=== PATIENT | male | born 1980 | race African-American/Black ===

== ENCOUNTER 2017-11-24 14:40 | Emergency (ER) | payer MEDICAID ==
[~2017-11-24] VITALS: Ht 180.3 cm; Wt 81.6 kg
[~2017-11-24 14:40] MED LIST: AMOXICILLIN500 MG ORAL; IBUPROFEN600 MG ORAL; NKM; NORCO 5-325 TA1 EACH ORAL; NORCO 5-325 TA1 EACH PO; PENICILLIN V P500 MG PO
[2017-11-24 14:50] VITALS: BP 155/99
[2017-11-24] MEDS ORDERED: HYDROcodone/Acetamin 10/325 tab ORAL ONE (15:00)
[2017-11-24] MEDS ORDERED: Methocarbamol 750mg tab ORAL ONE (15:00)
[2017-11-24] MEDS ORDERED: ROBAXIN-750750 MG PO (15:09)
[2017-11-24] MEDS ORDERED: IBUPROFEN600 MG ORAL (15:09)
--- NOTE | 2017-11-24 15:10 | Emergency Room Report ---
History of Present Illness General Chief Complaint: Pain Source: Patient Present Illness HPI 37-year-old male p/w back pain for one week. Pain is localized to the left lower back/buttocks, sharp in nature, radiating down leg. Movement worsens pain. There are no alleviating factors. Patient took pain medications with minimal relief. Patient has experienced this similar pain in the past. Denies trauma. Denies lower extremity weakness/numbness, no bowel/bladder retention or incontinence, saddle anesthesia. Denies fever, chills, abdominal pain, n/v, dysuria/hematuria. No history of IVDA Allergies: Coded Allergies: No Known Allergies (Unverified , 08/10/13) Patient History Past Medical History: see triage record Past Surgical History: none Pertinent Family History: none Reviewed Nursing Documentation: PMH: Agreed, PSxH: Agreed Nursing Documentation-PMH Past Medical History: No Stated History Review of Systems All Other Systems: negative except mentioned in HPI Physical Exam Vital Signs Date Time Temp Pulse Resp B/P (MAP) Pulse Ox O2 Delivery O2 Flow Rate FiO2 11/24/17 14:50 97.9 104 18 155/99 98 Room Air Sp02 EP Interpretation: reviewed, normal General Appearance: normal inspection, well appearing, no apparent distress, alert, GCS 15, non-toxic Head: normocephalic, atraumatic Eyes: bilateral eye normal inspection, bilateral eye PERRL, bilateral eye EOMI ENT: normal ENT inspection, normal pharynx, normal voice, moist mucus membranes Neck: normal inspection, full range of motion, supple Respiratory: normal inspection, lungs clear, normal breath sounds, no respiratory distress, no retraction, no wheezing, speaking full sentences, chest symmetrical Cardiovascular #1: normal inspection, regular rate, rhythm, no edema, normal capillary refill Cardiovascular #2: 2+ radial (R), 2+ radial (L) Gastrointestinal: normal inspection, non tender, soft, non-distended, no guarding Genitourinary: no CVA tenderness Musculoskeletal: other - L lower lumbar paraspinal tenderness. no midline tenderness. FROM Neurologic: alert, oriented x3, physical therapy resident III-XII nml as tested, motor strength/tone normal, normal gait Psychiatric: normal inspection, judgement/insight normal, memory normal Skin: normal inspection, normal color, no rash, warm/dry, well hydrated, normal turgor Medical Decision Making Diagnostic Impression: Primary Impression: Back pain ER Course 37-year-old male presenting with left-sided back pain radiating down to leg DDX: Likely musculoskeletal back pain vs. muscular strain vs. sciatica Lumbar fracture is unlikely given patients age, no midline tenderness, no history of trauma, and that patient is ambulatory. Therefore, at this time no imaging is indicated Serious diagnoses such as cord compression, epidural abscess is unlikely in this patient given the clinical scenario and abscess of neurological symptoms or findings. Patient appears nontoxic. Plan: Pain control, Robaxin ER course: Patient has remained nontoxic appearing and ambulatory in the ED. Pain improved w/ medications Disposition: Patient will be discharged to home with prescription of motrin and robaxin. Patient cautioned of the effects of robaxin including possible impairment of physical or mental abilities. Patient was instructed to refrain from operating machinery or driving. Patient is also cautioned on the GI effects of motrin and to take sparingly. Patient verbalized understanding. Strict precautions discussed with patient on when to emergently return to the ED which includes severe/worsening back pain, leg weakness/numbness, urinary retention/incontinence, fever or chills, which may indicate severe illness. Patient is to follow up with their PMD within 5 days. Patient agrees with plan. Please note that this Emergency Department Report was dictated using [employer] special library technology software, occasionally this can lead to erroneous entry secondary to interpretation by the dictation equipment. Last Vital Signs Date Time Temp Pulse Resp B/P (MAP) Pulse Ox O2 Delivery O2 Flow Rate FiO2 11/24/17 14:50 97.9 104 18 155/99 98 Room Air Disposition: HOME, SELF-CARE Condition: Improved Scripts Ibuprofen* (MOTRIN*) 600 Mg Tablet 600 MG ORAL Q8H Y for For Pain, #30 TAB 0 Refills Prov: Nena Yost M.D. 11/24/17 Methocarbamol* (ROBAXIN-750*) 750 Mg Tablet 750 MG PO QID, #28 TAB 0 Refills Prov: Nena Yost M.D. 11/24/17 Patient Instructions: Back Pain, Adult, [id number] Nena Yost M.D. Nov 24, 2017 15:10
[2017-11-24 15:31] VITALS: BP 165/75
== END 2017-11-24 15:31 | disposition home or self-care (01) ==
LOC: EMR 15:20
DX: M54.5 Low back pain (principal)
CPT/HCPCS: 99284

== ENCOUNTER 2018-01-25 12:02 | Emergency (ER) | payer MEDICAID ==
[~2018-01-25 12:02] MED LIST changes: +ROBAXIN-750750 MG PO
--- NOTE | 2018-01-25 13:07 | Emergency Room Report ---
History of Present Illness General Chief Complaint: To Be Triaged Present Illness Allergies: Coded Allergies: No Known Allergies (Unverified , 08/10/13) Medical Decision Making Disposition: MP AZUL M.D. Jan 25, 2018 13:07
== END 2018-01-25 13:30 | disposition left against medical advice (07) ==
LOC: EMR 13:16
DX: Z53.21 Procedure and treatment not carried out due to patient leaving prior to being seen by health care provider (principal)

== ENCOUNTER 2018-10-29 13:18 | Emergency (ER) | payer MEDICAID ==
[~2018-10-29] VITALS: Ht 180.3 cm; Wt 81.6 kg
[2018-10-29 13:24] VITALS: BP 158/82
[2018-10-29] MEDS ORDERED: Norco 5mg/325mg tab ORAL ONE (13:45)
--- NOTE | 2018-10-29 14:02 | Emergency Room Report ---
History of Present Illness General Chief Complaint: Pain Source: Patient Present Illness HPI 38 YO male presents to the ED c/o 07/22 in severity testicular/groin pain and swelling x 2 days. pt. reports sudden onset. He denies penile d/c, dysuria, hematuria or frequency. Pt. reports unprotected intercourse, but not with any new partners. Denies constipation or diarrhea. Pt. reports pain will radiate up the front of abdomen when lying down. Pt. denies n/v/f/c. Pt. denies hx of similar symptoms in the past. Pt. denies swollen tender lymph nodes or rashes. Allergies: Coded Allergies: No Known Allergies (Unverified , 08/10/13) Patient History Past Medical History: see triage record Past Surgical History: none Pertinent Family History: none Reviewed Nursing Documentation: PMH: Agreed; PSxH: Agreed Nursing Documentation-PMH Past Medical History: No Stated History Review of Systems All Other Systems: negative except mentioned in HPI Physical Exam Vital Signs Date Time Temp Pulse Resp B/P (MAP) Pulse Ox O2 Delivery O2 Flow Rate FiO2 10/29/18 13:24 98.1 97 18 158/82 99 Room Air Sp02 EP Interpretation: reviewed, normal General Appearance: no apparent distress, alert, GCS 15, non-toxic Head: normocephalic, atraumatic Eyes: bilateral eye normal inspection, bilateral eye PERRL ENT: hearing grossly normal, normal voice Neck: full range of motion Respiratory: lungs clear, normal breath sounds, speaking full sentences Cardiovascular #1: regular rate, rhythm Gastrointestinal: normal bowel sounds, soft, no peritonitis, non-distended, no rebound Rectal: deferred Genitourinary: normal inspection, no CVA tenderness, penis normal, other - testicular pain, and firmness, negative phren's sign, bilateral cremasteric reflexes intact. swelling noted. no purulent d/c, no lesions/rashes or LAD Musculoskeletal: back normal, gait/station normal, normal range of motion Neurologic: alert, oriented x3, responsive, motor strength/tone normal, sensory intact, normal gait, speech normal, grossly normal Psychiatric: judgement/insight normal Skin: normal color, no rash, warm/dry, well hydrated Medical Decision Making PA Attestation Dr. Capellan is my supervising Physician whom patient management has been discussed with. Diagnostic Impression: Primary Impression: Hydrocele in adult Additional Impression: Epididymal cyst ER Course 38 YO male presents to the ED c/o 07/22 in severity testicular/groin pain and swelling x 2 days. pt. reports sudden onset. He denies penile d/c, dysuria, hematuria or frequency. Pt. reports unprotected intercourse, but not with any new partners. Denies constipation or diarrhea. Pt. reports pain will radiate up the front of abdomen when lying down. Pt. denies n/v/f/c. Pt. denies hx of similar symptoms in the past. Pt. denies swollen tender lymph nodes or rashes. Ddx considered but are not limited to testicular torsion, epididymitis, orchitis , abscess, hernia Vital signs: are WNL, pt. is afebrile H&PE are most consistent with cremasterics reflex is intact with a negative phren's sign -there is no relief upon elevation ORDERS: - Testicular ultrasound: Hydrocele and Cyst on epididymal head. negative for evidence of testicular torsion or other acute testicular pathology" Per official radiology report- Please see report for specific details. ED INTERVENTIONS: - Speer PO DISCHARGE: At this time pt. is stable for d/c to home. Will provide printed patient care instructions, and any necessary prescriptions. Care plan and follow up instructions have been discussed with the patient prior to discharge. CT/MRI/US Diagnostic Results CT/MRI/US Diagnostic Results : Imaging Test Ordered: Testicular US Impression "Hydrocele and Cyst on epididymal head. negative for evidence of testicular torsion or other acute testicular pathology" Per official radiology report- Please see report for specific details. Last Vital Signs Date Time Temp Pulse Resp B/P (MAP) Pulse Ox O2 Delivery O2 Flow Rate FiO2 10/29/18 13:24 98.1 97 18 158/82 99 Room Air Disposition: HOME, SELF-CARE Condition: Stable Scripts Ibuprofen (Ibuprofen) 800 Mg Tablet 800 MG PO Q6HR, #20 TAB Prov: Flor Raygoza 10/29/18 Departure Forms: Return to Work Return to Work Date: Nov 02, 2018 Work Restrictions: None Other Restrictions: May return Sooner if Symptoms have resolved. Return to Full Activity: Nov 02, 2018 Patient Instructions: Hydrocele, Adult Additional Instructions: Take medications as directed. Follow up with a Primary Care Provider in 3-5 days, even if your symptoms have resolved. --Please review list of primary care clinics, if you do not already have a primary care provider Return sooner to ED if new symptoms occur, or current symptoms become worse. - Please note that this Emergency Department Report was dictated using [employer]by[employer] office assistant technology software, occasionally this can lead to erroneous entry secondary to interpretation by the dictation equipment. Flor Raygoza Oct 29, 2018 14:02
[2018-10-29 14:08] LABS: APPEARANCE,URINE CLEAR; BILIRUBIN, URINE NEGATIVE (NEGATIVE); COLOR,URINE PALE YELLOW; GLUCOSE, URINE (UA) NEGATIVE (NEGATIVE); KETONES,URINE NEGATIVE (NEGATIVE); LEUKOCYTE ESTERASE ,URINE 1+ (NEGATIVE); NITRITE,URINE NEGATIVE (NEGATIVE); PH,URINE 7 (4.5-8.0); PROTEIN,URINE NEGATIVE (NEGATIVE); UROBILINOGEN,URINE NORMAL MG/DL (0.0-1.0)
--- NOTE | 2018-10-29 15:18 | Diagnostic Imaging Report ---
Indications: Testicular pain and swelling Technique: Grayscale and duplex images of the scrotum Comparison: none Findings:The right testicle measures 4.6cm in length. It demonstrates normal echogenicity. Normal Doppler flow. There is a 8 mm cyst in the epididymal head. There is a small hydrocele The left testicle measures 4.1 cm in length. It demonstrates normal echogenicity and normal Doppler flow. Normal epididymis. There is a small hydrocele Impression: Negative for evidence of testicular torsion or other acute testicular pathology. Small bilateral hydroceles Cyst in the right epididymal head, either epididymal cyst or spermatocele
[2018-10-29] MEDS ORDERED: IBUPROFEN800 M1 PO (15:36)
[2018-10-29 15:42] VITALS: BP 148/76
== END 2018-10-29 15:42 | disposition home or self-care (01) ==
LOC: EMR 14:45
DX: N43.3 Hydrocele, unspecified (principal); N50.3 Cyst of epididymis
CPT/HCPCS: 76870; 81003; 99284

== ENCOUNTER 2020-08-23 11:16 | Emergency (ER) | payer MEDICAID ==
[~2020-08-23] VITALS: Ht 180.3 cm; Wt 81.6 kg
[~2020-08-23 11:16] MED LIST changes: +IBUPROFEN600 M1 ORAL; +IBUPROFEN800 M1 PO; +NORCO 5-325 TA1 EAC1 ORAL; +VALIUM5 MG ORAL
--- NOTE | 2020-08-23 11:18 | NUR ---
pt. not in the room
[2020-08-23 11:40] VITALS: BP 147/94
--- NOTE | 2020-08-23 11:57 | NUR ---
ED Nurse Note: Patient walked in to ER c/o abdominal pain nausea vomiting and blood in stool for 2 days, needs BP meds refill. Patient presented calm, AAO x4, VSS at this time.
[2020-08-23] MEDS ORDERED: Acetaminophen 500mg (ES) tab ORAL ONE (12:15)
[2020-08-23 13:22] LABS: BASOPHILS % (AUTO) 3.1 % (0.0-2.0); EOSINOPHILS % (AUTO) 3.9 % (0.0-3.0); HEMATOCRIT 48.9 % (42.0-52.0); HEMOGLOBIN 16.4 G/DL (14.2-18.0); LYMPHOCYTES % (AUTO) 24.4 % (20.0-45.0); MEAN CORPUSCULAR VOLUME 81 FL (80-99); MONOCYTES % (AUTO) 8.6 % (1.0-10.0); PLATELET COUNT 279 K/UL (150-450); RED BLOOD COUNT 6.04 M/UL (4.70-6.10); RED CELL DISTRIBUTION WIDTH 11.5 % (11.6-14.8); WHITE BLOOD COUNT 5.8 K/UL (4.8-10.8)
--- NOTE | 2020-08-23 13:28 | Emergency Room Report ---
History of Present Illness General Chief Complaint: Abdominal Pain Source: Patient Present Illness HPI 40-year-old otherwise healthy male here with left lower abdominal mild tenderness and bloody diarrhea. Patient says that he has been having some mild left lower quadrant abdominal pain over the past several days to weeks. Pain had subsided but then he had 1 bloody bowel movement 3 days ago. Since then he has been having normal bowel movements. He said that there was red blood mixed in his stool one time and is not had any recurrence of his symptoms. Denies fevers, chills, chest pain, shortness of breath, back pain, other abdominal pain, nausea, vomiting, diarrhea, dysuria. Pain is dull in nature, was located in his left lower quadrant. Does not feel any pain now. Is not taking any pain medications. Allergies: Coded Allergies: No Known Allergies (Unverified , 08/10/13) COVID-19 Screening Contact w/high risk pt: No Experienced COVID-19 symptoms?: No COVID-19 Testing performed VICE PRESIDENT OF CUSTOMER SERVICE: No Nursing Documentation-[facility] Past Medical History: No History, Except For Hx Hypertension: Yes Review of Systems All Other Systems: negative except mentioned in HPI Physical Exam Vital Signs Date Time Temp Pulse Resp B/P (MAP) Pulse Ox O2 Delivery O2 Flow Rate FiO2 08/23/20 11:25 98.1 80 16 147/94 (111) 99 Room Air Sp02 EP Interpretation: reviewed, normal General Appearance: no apparent distress, alert, GCS 15, non-toxic Head: normocephalic, atraumatic Eyes: bilateral eye normal inspection, bilateral eye PERRL ENT: hearing grossly normal, normal pharynx, no angioedema, normal voice Neck: full range of motion, supple/symm/no masses Respiratory: chest non-tender, lungs clear, normal breath sounds, speaking full sentences Cardiovascular #1: regular rate, rhythm, no edema Cardiovascular #2: 2+ carotid (R), 2+ carotid (L), 2+ radial (R), 2+ radial (L), 2+ dorsalis pedis (R), 2+ dorsalis pedis (L) Gastrointestinal: normal bowel sounds, soft, non-distended, no guarding, no rebound, other - Very mild left lower quadrant abdominal tenderness on palpation. No rebound or guarding. No distention Rectal: deferred Genitourinary: normal inspection, no CVA tenderness Musculoskeletal: back normal, normal range of motion, gait/station normal, non- tender Neurologic: alert, motor strength/tone normal, oriented x3, sensory intact, responsive, speech normal Psychiatric: judgement/insight normal, memory normal, mood/affect normal, no suicidal/homicidal ideation Lymphatic: no adenopathy Medical Decision Making Diagnostic Impression: Primary Impression: Abdominal pain ER Course Laboratory Tests Test 08/23/20 13:10 White Blood Count 5.8 K/UL (4.8-10.8) Red Blood Count 6.04 M/UL (4.70-6.10) Hemoglobin 16.4 G/DL (14.2-18.0) Hematocrit 48.9 % (42.0-52.0) Mean Corpuscular Volume 81 FL (80-99) Mean Corpuscular Hemoglobin 27.2 PG (27.0-31.0) Mean Corpuscular Hemoglobin Concent 33.6 G/DL (32.0-36.0) Red Cell Distribution Width 11.5 % (11.6-14.8) L Platelet Count 279 K/UL (150-450) Mean Platelet Volume 6.3 FL (6.5-10.1) L Neutrophils (%) (Auto) 60.0 % (45.0-75.0) Lymphocytes (%) (Auto) 24.4 % (20.0-45.0) Monocytes (%) (Auto) 8.6 % (1.0-10.0) Eosinophils (%) (Auto) 3.9 % (0.0-3.0) H Basophils (%) (Auto) 3.1 % (0.0-2.0) H Sodium Level 135 MMOL/L (136-145) L Potassium Level 4.4 MMOL/L (3.5-5.1) Chloride Level 102 MMOL/L (98-107) Carbon Dioxide Level 26 MMOL/L (21-32) Anion Gap 7 mmol/L (5-15) Blood Urea Nitrogen 10 mg/dL (7-18) Creatinine 1.1 MG/DL (0.55-1.30) Estimated Glomerular Filtration Rate > 60 mL/min (>60) Glucose Level 101 MG/DL (74-106) Calcium Level 9.1 MG/DL (8.5-10.1) Total Bilirubin 0.3 MG/DL (0.2-1.0) Aspartate Amino Transferase (AST) 19 U/L (15-37) Alanine Aminotransferase (ALT) 40 U/L (12-78) Alkaline Phosphatase 81 U/L (46-116) Total Protein 7.1 G/DL (6.4-8.2) Albumin 4.2 G/DL (3.4-5.0) Globulin 2.9 g/dL Albumin/Globulin Ratio 1.4 (1.0-2.7) Lipase 176 U/L (73-393) 40-year-old male here with left lower quadrant abdominal pain and one episode of bloody diarrhea. The episode of bloody diarrhea occurred 3 days ago. Patient has had multiple normal bowel movement since then. He was hemodynamically stable and neurovascular intact and had a largely benign physical examination. No indication for imaging at this time. CBC and CMP were unremarkable. Patient had no leukocytosis and no signs of anemia. He was tolerating p.o. in the emergency department. High likelihood at this time that the patient has diverticulitis given his set of symptoms. He was given prescription for ciprofloxacin and Flagyl and told to come back to the emergency department if he has any worsening abdominal pain, more episodes of bloody diarrhea, lightheadedness. Will follow with a primary care physician. Discharged in stable condition. Last Vital Signs Date Time Temp Pulse Resp B/P (MAP) Pulse Ox O2 Delivery O2 Flow Rate FiO2 08/23/20 11:40 80 16 Room Air 08/23/20 11:40 98.1 147/94 99 Disposition: AGAINST MEDICAL ADVICE Condition: Stable Scripts Amlodipine Besylate* (AMLODIPINE BESYLATE*) 5 Mg Tablet 5 MG ORAL DAILY for Hypertension for 14 Days, TAB Prov: Thee Negron M.D. 08/23/20 Acetaminophen* (TYLENOL EXTRA STRENGTH*) 500 Mg Tablet 500 MG ORAL Q8H PRN for Prn Headache/Temp > 101, #30 TAB 0 Refills Prov: Thee Negron M.D. 08/23/20 Metronidazole* (FLAGYL*) 500 Mg Tablet 500 MG ORAL THREE TIMES A DAY, #21 TAB Prov: Thee Negron M.D. 08/23/20 Ciprofloxacin Hcl* (CIPROFLOXACIN HCL*) 500 Mg Tablet 500 MG ORAL Q12H, #14 TAB 0 Refills Prov: Thee Negron M.D. 08/23/20 Patient Instructions: Abdominal Pain, Adult Thee Negron M.D. Aug 23, 2020 13:28
[2020-08-23 13:29] LABS: ANION GAP 7 mmol/L (5-15); BLOOD UREA NITROGEN 10 mg/dL (7-18); CALCIUM 9.1 MG/DL (8.5-10.1); CARBON DIOXIDE 26 MMOL/L (21-32); CHLORIDE 102 MMOL/L (98-107); CREATININE 1.1 MG/DL (0.55-1.30); POTASSIUM 4.4 MMOL/L (3.5-5.1); SODIUM 135 MMOL/L (136-145)
[2020-08-23 13:34] LABS: ALANINE AMINOTRANSFERASE 40 U/L (12-78); ALBUMIN 4.2 G/DL (3.4-5.0); ALBUMIN/GLOBULIN RATIO 1.4 (1.0-2.7); ALKALINE PHOSPHATASE 81 U/L (46-116); ASPARTATE AMINO TRANSFERASE 19 U/L (15-37); BILIRUBIN,TOTAL 0.3 MG/DL (0.2-1.0)
[2020-08-23] MEDS ORDERED: TYLENOL EXTRA500 MG ORAL (13:40)
[2020-08-23] MEDS ORDERED: METRONIDAZOLE500 MG ORAL (13:40)
[2020-08-23] MEDS ORDERED: CIPROFLOXACIN500 M2 ORAL (13:40)
[2020-08-23] MEDS ORDERED: AMLODIPINE BESYL5 MG ORAL (13:43)
[2020-08-23 13:46] VITALS: BP 147/94
--- NOTE | 2020-08-23 14:07 | NUR ---
ED Nurse Note: Pt cleared by health care Provider for discharge. DC instructions/prescription was given and explained to pt and verbalized understanding of teachings. All medical deviecs such as ID band removed. Pt is AAO x4, ambulatory and left with all personal belongings.
== END 2020-08-23 13:46 | disposition home or self-care (01) ==
LOC: EMR 12:50
DX: R10.32 Left lower quadrant pain (principal); R19.7 Diarrhea, unspecified; I10 Essential (primary) hypertension
CPT/HCPCS: 36415; 80053; 83690; 85025; Z7502; 99283